=== PATIENT | female | born 1985 | race Caucasian/White ===

== ENCOUNTER 2019-01-14 17:37 | Emergency (ER) | payer MEDICAID ==
[~2019-01-14] VITALS: Ht 154.9 cm; Wt 54.5 kg
[2019-01-14 17:47] VITALS: Ht 154.9 cm; Wt 54.5 kg
[2019-01-14] MEDS ORDERED: VIBRAMYCIN 100100 MG PO (20:03)
[2019-01-14] MEDS ORDERED: TORADOL10 MG PO (20:03)
[2019-01-14 20:21] VITALS: BP 132/92
== END 2019-01-14 20:21 | disposition home or self-care (01) ==
LOC: D.ER 17:37
DX: L02.413 Cutaneous abscess of right upper limb (principal)